=== PATIENT | female | born 2000 | race Caucasian/White ===

== ENCOUNTER 2021-12-29 08:35 | Day surgery (SDC) | payer OTHER ==
[2021-12-27 11:23] VITALS: BMI 43.2
[~2021-12-29 08:35] MED LIST: LACTATED RINGERS 1,000 ML IV SCH; LIDOCAINE 1% (10MG/ML) FOR IV START INTRADERMA PRN
[2021-12-29] MEDS ORDERED: LIDOCAINE 1% (10MG/ML) FOR IV START SQ ONE (09:09)
[2021-12-29] MEDS ORDERED: MIDAZOLAM 2 MG/2 ML VIAL ONE (09:10)
[2021-12-29] MEDS ORDERED: PROPOFOL 10 MG/ML 20 ML VIAL IV ONE (09:10)
[2021-12-29] MEDS ORDERED: LIDOCAINE 1% INJ 10MG/ML (20 ML MDV) ONE (09:10)
[2021-12-29] MEDS ORDERED: fentaNYL (PF) 50 MCG/ML 2 ML AMP ONE (09:10)
--- NOTE | 2021-12-29 09:32 | P.PCN ---
Date of Procedure: 12/29/21 Preoperative Diagnosis: GERD Change in bowels Postoperative Diagnosis: Gastritis Duodenitis Normal colon Procedure(s) Performed: EGD with biopsy Colonoscopy Anesthesia: MAC Surgeon: Tamiko Lee Pathology: other (Biopsies of esophagus, antrum, duodenum) Condition: stable Disposition: same day Indications for Procedure: 21-year-old female presents today for upper and lower endoscopy. She has had recent elevation in her GERD symptoms along with significant changes in bowel function with consistent diarrhea. Secondary to this, upper and lower endoscopy is planned. Patient was excellent risks, alternatives to the procedure. Operative Findings: Gastritis Duodenitis Overall normal-appearing colon Description of Procedure: The patient was brought to the endoscopy suite and was placed in left lateral decubitus position and adequate sedation was achieved using conscious sedation. A bite block was placed and an endoscope was placed in the oropharynx and advanced under endoscopic visualization. The endoscope was advanced through the esophagus into the stomach, through the gastric antrum and into the pylorus. The third portion of the duodenum was visualized. The endoscope was then slowly withdrawn. The first portion of duodenum was noted to have inflammatory changes. Biopsies were taken. The antrum was noted to have inflammatory changes. Biopsies were taken. The gastric body distended normally and the gastric folds appeared normal and flattened with insufflation. A retroflexed view of the fundus and GE junction revealed no significant hiatal hernia. The esophagus appeared endoscopically normal. Biopsies were taken. Excess air was removed and the scope was withdrawn. A digital rectal exam was performed and internal hemorrhoids were palpated. An endoscope was then placed in the rectum and advanced to the cecum as identified by landmarks including the appendiceal orifice and the ileocecal valve. The prep was good. The colonoscope was slowly withdrawn, examining for any mucosal abnormalities. The cecum, ascending, transverse, descending and sigmoid colon were visualized adequately. There were no obvious neoplastic lesions noted throughout the colon. There were no obvious polyps noted throughout the colon. No evidence of diverticulosis. Retroflexion was performed in the rectum and internal hemorrhoids were visible. Excess air was removed, the colonoscope withdrawn and the procedure terminated. The patient was then transferred to the recovery unit in stable condition. Repeat colonoscopy should be performed at age 44 for screening purposes, muss otherwise symptomatic and requiring endoscopy.
[2021-12-29 09:45] VITALS: RESP 18
[2021-12-29 10:02] VITALS: BP 129/77; PULSE 62
== END 2021-12-29 10:36 | disposition home or self-care (01) ==
LOC: ORWHC2ENDO 08:35
PROVIDERS: ATTEND Surgery
DX: K21.9 Gastro-esophageal reflux disease without esophagitis (principal); K29.80 Duodenitis without bleeding; F12.90 Cannabis use, unspecified, uncomplicated
CPT/HCPCS: 45378; 43239; 81025; 88305; J2250; J2001; J3010; J2704